=== PATIENT | male | born 1960 | race Caucasian/White ===

== ENCOUNTER → 2022-07-17 12:04 | Outpatient (CLI) | payer OTHER, SELFPAY ==
--- NOTE | ~2022-07-17 | XR_ITS ---
EXAM: XR cervical spine 4-5V DATE: 07/17/2022 12:33 HISTORY: Unspecified inflammatory spondylopathy, cervical region . COMPARISON: None available. FINDINGS: The cervicothoracic junction is mostly obscured. Craniocervical association and atlantoaxi al joint are aligned. No prevertebral soft tissue swelling. 2 mm anterolisthesis at C5-6. Vertebral b suresh heights are maintained. Mild disc space narrowing at C4-5 and C5-6. Multilevel facet hypertrophy and sclerosis, with the suggestion of erosive changes on the right at C5-6, seen best in the frontal view. IMPRESSION: Minimal, grade 1 anterolisthesis at C5-6. Mild multilevel degenerative disc disease. Mult ilevel facet and uncovertebral joint hypertrophy, with a suggestion of erosive change on the right at C5-6. Reviewed, dictated and finalized at location K. [employer] TENDER IMPRESSION: Minimal, grade 1 anterolisthesis at C5-6. Mild multilevel degenerat iain disc disease. Multilevel facet and uncovertebral joint hypertrophy, with a suggestion of erosive change on the right at C5-6.
== END ==
PROVIDERS: PCP Internal Medicine; Visit Provider Nurse Practitioner Family
DX: M50.30 Other cervical disc degeneration, unspecified cervical region (principal)
CPT/HCPCS: 72050

== ENCOUNTER 2024-06-25 12:41 | Outpatient (CLI) | payer OTHER, SELFPAY ==
--- NOTE | ~2024-06-25 | MR_ITS ---
EXAMINATION: MR lumbar spine wo con DATE: 06/25/2024 13:24 INDICATION: Low back pain. Lumbar radiculopathy. TECHNIQUE: Magnetic resonance imaging (MRI) of the lumbar spine was performed without intravenous con trast. Sequences included sagittal T2-weighted FSE, sagittal T2-weighted FS FSE, sagittal T1-weighted FSE, and axial T2-weighted FSE. COMPARISON: None FINDINGS: There is 3 degrees levocurvature of lumbar spine. There is 3 mm retrolisthesis of L3 on L4 and L5 on S1. Vertebral body heights are normal. There is mildly decreased disc height at L3-L4 and L 4-L5 and severely decreased disc height at L5-S1. The distal spinal cord signal intensity is normal. The conus medullaris is at T12. The following disc levels are specifically discussed: L1-L2: The disc does not extend beyond the endplate margin. There is severe right and moderate left f acet joint osteoarthritis. There is no neural foraminal stenosis. There is no central canal stenosis. L2-L3: The disc does not extend beyond the endplate margin. There is mild bilateral facet joint osteo arthritis. There is no neural foraminal stenosis. There is no central canal stenosis. L3-L4: The disc is bulging. There is moderate bilateral facet joint osteoarthritis. There is mild sarah ateral neural foraminal stenosis. There is mild central canal stenosis. L4-L5: The disc is bulging with superimposed left subarticular zone extrusion with mass effect on lef t L5 nerve root in left lateral recess. There is severe bilateral facet joint osteoarthritis. There i s mild bilateral neural foraminal stenosis. There is mild central canal stenosis. There is severe brandon nosis of left lateral recess. L5-S1: The disc is bulging and has an annular fissure. There is mild bilateral facet joint osteoarthr itis. There is mild bilateral neural foraminal stenosis. There is mild central canal stenosis. IMPRESSION: 1. Severe lower lumbar spondylosis. Of note, an extrusion at L4-L5 exerts mass effect on left L5 nerv e root. Reviewed, dictated and finalized at location A. [employer] IMPRESSION: 1. Severe lower lumbar spondylosis. Of note, an extrusion at L4-L5 exerts mass effect on left L5 nerve root.
== END 2024-06-25 12:42 | disposition home or self-care (01) ==
LOC: GOSHIMG 12:43
PROVIDERS: PCP Nurse Practitioner Family; Visit Provider Nurse Practitioner Family
DX: M47.816 Spondylosis without myelopathy or radiculopathy, lumbar region (principal); M51.26 Other intervertebral disc displacement, lumbar region
CPT/HCPCS: 72148